=== PATIENT | male | born 1935 | race Caucasian/White ===

== ENCOUNTER 2022-09-05 13:59 | Emergency (ER) | payer MEDICARE, BC ==
[~2022-09-05] VITALS: Ht 175.3 cm; Wt 70.3 kg
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
--- NOTE | 2022-09-05 17:12 | NUR ---
Ok for pt to be discharged per dr mcintosh.
--- NOTE | 2022-09-05 17:13 | NUR ---
Patient discharged to home in stable condition. Written and verbal after care instructions given. Patient verbalizes understanding of instruction.
[2022-09-05 17:15] VITALS: BP 137/85
== END 2022-09-05 17:21 | disposition home or self-care (01) ==
LOC: ER 13:59
DX: S20.212A Contusion of left front wall of thorax, initial encounter (principal); S80.12XA Contusion of left lower leg, initial encounter; Z90.5 Acquired absence of kidney; V89.2XXA Person injured in unspecified motor-vehicle accident, traffic, initial encounter; Y93.89 Activity, other specified; Y92.89 Other specified places as the place of occurrence of the external cause; Y99.8 Other external cause status
CPT/HCPCS: 71100-TC; 73590-TC